=== PATIENT | female | born 1990 | race American Indian/Alaskan Native ===

== ENCOUNTER 2020-12-07 23:24 | Emergency (ER) | payer BC, OTHER ==
[2020-12-08 02:35] VITALS: BP 111/59
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
== END 2020-12-08 04:15 | disposition home or self-care (01) ==
LOC: ED 23:24
DX: M62.830 Muscle spasm of back (principal); M62.838 Other muscle spasm; F17.200 Nicotine dependence, unspecified, uncomplicated; Z79.899 Other long term (current) drug therapy
CPT/HCPCS: 72125; 99283